=== PATIENT | female | born 1940 | race Caucasian/White ===

== ENCOUNTER 2019-05-07 14:45 | Inpatient (IN) | payer MEDICARE ==
[2019-05-08] MEDS ORDERED: traMADol HCl 50 MG TAB PO PRN (19:52)
[2019-05-08] MEDS ORDERED: MINERAL OIL PR PRN (19:52)
[2019-05-08] MEDS ORDERED: Bisacodyl 10 MG SUPP PR PRN (19:52)
[2019-05-08] MEDS ORDERED: Bisacodyl 5 MG TAB PO PRN (19:52)
[2019-05-08] MEDS: Apixaban 5 MG TAB PO SCH (21:46)
[2019-05-08] MEDS: Amiodarone 200 MG TAB PO SCH (21:46)
[2019-05-08] MEDS: Valsartan 80 MG TAB PO SCH (21:46)
[2019-05-08] MEDS: Famotidine 20 MG TAB PO SCH (21:46)
[2019-05-08] MEDS: Atorvastatin Calcium 40 MG TAB PO SCH (21:46)
[2019-05-08] MEDS: Nystatin Powder 15 GM BOT TOP SCH ×2 (21:47→21:58)
[2019-05-08] MEDS: Acetaminophen 325 MG TAB PO PRN (23:52)
[2019-05-09] MEDS: Levothyroxine Sodium 50 MCG TAB PO SCH (05:48)
[2019-05-09] MEDS: Acetaminophen 325 MG TAB PO PRN ×2 (05:48→11:28)
[2019-05-09] MEDS: Nystatin Powder 15 GM BOT TOP SCH ×2 (09:56→20:23)
[2019-05-09] MEDS: Aspirin 81 mg Enteric Coated Tablet PO SCH (09:57)
[2019-05-09] MEDS: Escitalopram Oxalate 20 mg Tablet PO SCH (09:59)
[2019-05-09] MEDS: Apixaban 5 MG TAB PO SCH ×2 (09:59→20:22)
[2019-05-09] MEDS: Furosemide 40 MG TAB PO SCH (09:59)
[2019-05-09] MEDS: Valsartan 80 MG TAB PO SCH ×2 (09:59→20:21)
[2019-05-09] MEDS: Cyanocobalamin (Vitamin B-12) 1,000 MCG TAB PO SCH (09:59)
[2019-05-09] MEDS: Amiodarone 200 MG TAB PO SCH ×2 (09:59→20:22)
[2019-05-09] MEDS: Polyethylene Glycol 3350 17 GM Packet PO SCH (10:00)
[2019-05-09] MEDS ORDERED: Dextrose 5% in Water 1,000 ML IV PRN (16:53)
[2019-05-09] MEDS ORDERED: Dextrose 50% Abboject 50 ML SYRINGE IVP PRN (16:53)
[2019-05-09] MEDS: HumaLOG 300 UNITS/3 ML VIAL SC PRN (17:57)
[2019-05-09] MEDS: Famotidine 20 MG TAB PO SCH (20:21)
[2019-05-09] MEDS: Atorvastatin Calcium 40 MG TAB PO SCH (20:22)
[2019-05-10] MEDS: Acetaminophen 325 MG TAB PO PRN ×2 (04:43→10:55)
[2019-05-10] MEDS: Levothyroxine Sodium 50 MCG TAB PO SCH (06:10)
[2019-05-10] MEDS: Furosemide 40 MG TAB PO SCH (07:51)
[2019-05-10] MEDS: Valsartan 80 MG TAB PO SCH ×2 (09:26→20:40)
[2019-05-10] MEDS: Escitalopram Oxalate 20 mg Tablet PO SCH (09:26)
[2019-05-10] MEDS: Amiodarone 200 MG TAB PO SCH ×2 (09:27→20:41)
[2019-05-10] MEDS: Aspirin 81 mg Enteric Coated Tablet PO SCH (09:27)
[2019-05-10] MEDS: Apixaban 5 MG TAB PO SCH ×2 (09:27→20:40)
[2019-05-10] MEDS: Cyanocobalamin (Vitamin B-12) 1,000 MCG TAB PO SCH (09:27)
[2019-05-10] MEDS: Polyethylene Glycol 3350 17 GM Packet PO SCH (09:28)
[2019-05-10] MEDS: Nystatin Powder 15 GM BOT TOP SCH ×2 (09:28→20:41)
[2019-05-10] MEDS: HumaLOG 300 UNITS/3 ML VIAL SC PRN ×3 (12:31→20:53)
[2019-05-10] MEDS: HYDROcodone/Acetaminophen 5/325 mg Tablet PO PRN ×2 (13:15→20:38)
[2019-05-10] MEDS: Guaifenesin DM 100-10/5 ML UDCUP PO PRN (13:17)
[2019-05-10] MEDS: Famotidine 20 MG TAB PO SCH (20:40)
[2019-05-10] MEDS: Atorvastatin Calcium 40 MG TAB PO SCH (20:40)
[2019-05-11] MEDS: Levothyroxine Sodium 50 MCG TAB PO SCH (06:15)
[2019-05-11] MEDS: HYDROcodone/Acetaminophen 5/325 mg Tablet PO PRN ×2 (06:16→20:38)
[2019-05-11] MEDS: Polyethylene Glycol 3350 17 GM Packet PO SCH (09:22)
[2019-05-11] MEDS: Aspirin 81 mg Enteric Coated Tablet PO SCH (09:22)
[2019-05-11] MEDS: Cyanocobalamin (Vitamin B-12) 1,000 MCG TAB PO SCH (09:22)
[2019-05-11] MEDS: Furosemide 40 MG TAB PO SCH (09:22)
[2019-05-11] MEDS: Apixaban 5 MG TAB PO SCH ×2 (09:22→20:40)
[2019-05-11] MEDS: Valsartan 80 MG TAB PO SCH ×2 (09:23→20:40)
[2019-05-11] MEDS: Escitalopram Oxalate 20 mg Tablet PO SCH (09:23)
[2019-05-11] MEDS: Amiodarone 200 MG TAB PO SCH ×2 (09:23→20:40)
[2019-05-11] MEDS: Nystatin Powder 15 GM BOT TOP SCH ×2 (09:23→20:42)
[2019-05-11] MEDS: HumaLOG 300 UNITS/3 ML VIAL SC PRN ×4 (09:25→20:39)
[2019-05-11] MEDS: Guaifenesin DM 100-10/5 ML UDCUP PO PRN (14:29)
[2019-05-11] MEDS: Famotidine 20 MG TAB PO SCH (20:40)
[2019-05-11] MEDS: Atorvastatin Calcium 40 MG TAB PO SCH (20:40)
[2019-05-12] MEDS: HYDROcodone/Acetaminophen 5/325 mg Tablet PO PRN ×2 (05:44→21:52)
[2019-05-12] MEDS: Levothyroxine Sodium 50 MCG TAB PO SCH (05:44)
[2019-05-12] MEDS: Valsartan 80 MG TAB PO SCH ×2 (08:35→20:30)
[2019-05-12] MEDS: Furosemide 40 MG TAB PO SCH (08:35)
[2019-05-12] MEDS: Aspirin 81 mg Enteric Coated Tablet PO SCH (08:36)
[2019-05-12] MEDS: Amiodarone 200 MG TAB PO SCH ×2 (08:36→20:31)
[2019-05-12] MEDS: Escitalopram Oxalate 20 mg Tablet PO SCH (08:36)
[2019-05-12] MEDS: Apixaban 5 MG TAB PO SCH ×2 (08:36→20:29)
[2019-05-12] MEDS: Nystatin Powder 15 GM BOT TOP SCH ×2 (08:37→20:31)
[2019-05-12] MEDS: Polyethylene Glycol 3350 17 GM Packet PO SCH (08:37)
[2019-05-12] MEDS: Cyanocobalamin (Vitamin B-12) 1,000 MCG TAB PO SCH (08:37)
[2019-05-12] MEDS: HumaLOG 300 UNITS/3 ML VIAL SC PRN ×3 (12:55→21:49)
[2019-05-12] MEDS: Famotidine 20 MG TAB PO SCH (20:30)
[2019-05-12] MEDS: Atorvastatin Calcium 40 MG TAB PO SCH (20:31)
[2019-05-13] MEDS: Levothyroxine Sodium 50 MCG TAB PO SCH (06:11)
[2019-05-13] MEDS: HYDROcodone/Acetaminophen 5/325 mg Tablet PO PRN ×2 (06:14→21:05)
[2019-05-13] MEDS: Polyethylene Glycol 3350 17 GM Packet PO SCH (08:48)
[2019-05-13] MEDS: Cyanocobalamin (Vitamin B-12) 1,000 MCG TAB PO SCH (08:48)
[2019-05-13] MEDS: Escitalopram Oxalate 20 mg Tablet PO SCH (08:49)
[2019-05-13] MEDS: Amiodarone 200 MG TAB PO SCH ×2 (08:49→21:05)
[2019-05-13] MEDS: Aspirin 81 mg Enteric Coated Tablet PO SCH (08:49)
[2019-05-13] MEDS: Apixaban 5 MG TAB PO SCH ×2 (08:49→21:04)
[2019-05-13] MEDS: Valsartan 80 MG TAB PO SCH ×2 (08:50→21:04)
[2019-05-13] MEDS: Furosemide 40 MG TAB PO SCH (08:50)
[2019-05-13] MEDS: Nystatin Powder 15 GM BOT TOP SCH ×2 (08:53→21:06)
[2019-05-13] MEDS: HumaLOG 300 UNITS/3 ML VIAL SC PRN ×4 (09:09→21:13)
[2019-05-13] MEDS: Atorvastatin Calcium 40 MG TAB PO SCH (21:04)
[2019-05-13] MEDS: Famotidine 20 MG TAB PO SCH (21:05)
[2019-05-14] MEDS: Levothyroxine Sodium 50 MCG TAB PO SCH (05:58)
[2019-05-14] MEDS: HYDROcodone/Acetaminophen 5/325 mg Tablet PO PRN ×2 (05:58→20:59)
[2019-05-14] MEDS: Furosemide 40 MG TAB PO SCH (08:08)
[2019-05-14] MEDS: HumaLOG 300 UNITS/3 ML VIAL SC PRN ×4 (08:09→21:13)
[2019-05-14] MEDS: Escitalopram Oxalate 20 mg Tablet PO SCH (08:52)
[2019-05-14] MEDS: Amiodarone 200 MG TAB PO SCH ×2 (08:52→21:00)
[2019-05-14] MEDS: Aspirin 81 mg Enteric Coated Tablet PO SCH (08:53)
[2019-05-14] MEDS: Apixaban 5 MG TAB PO SCH ×2 (08:53→21:00)
[2019-05-14] MEDS: Cyanocobalamin (Vitamin B-12) 1,000 MCG TAB PO SCH (08:53)
[2019-05-14] MEDS: Polyethylene Glycol 3350 17 GM Packet PO SCH (09:04)
[2019-05-14] MEDS: Nystatin Powder 15 GM BOT TOP SCH ×2 (09:04→23:19)
[2019-05-14] MEDS: Valsartan 80 MG TAB PO SCH ×2 (09:12→21:00)
[2019-05-14] MEDS: Guaifenesin DM 100-10/5 ML UDCUP PO PRN (09:15)
[2019-05-14] MEDS: Atorvastatin Calcium 40 MG TAB PO SCH (21:00)
[2019-05-14] MEDS: Famotidine 20 MG TAB PO SCH (21:00)
[2019-05-15] MEDS: HYDROcodone/Acetaminophen 5/325 mg Tablet PO PRN ×2 (05:18→18:28)
[2019-05-15] MEDS: Levothyroxine Sodium 50 MCG TAB PO SCH (05:18)
[2019-05-15] MEDS: Cyanocobalamin (Vitamin B-12) 1,000 MCG TAB PO SCH (08:42)
[2019-05-15] MEDS: Apixaban 5 MG TAB PO SCH ×2 (08:42→22:14)
[2019-05-15] MEDS: Escitalopram Oxalate 20 mg Tablet PO SCH (08:42)
[2019-05-15] MEDS: Amiodarone 200 MG TAB PO SCH ×2 (08:42→22:14)
[2019-05-15] MEDS: Aspirin 81 mg Enteric Coated Tablet PO SCH (08:42)
[2019-05-15] MEDS: Valsartan 80 MG TAB PO SCH ×2 (08:42→22:14)
[2019-05-15] MEDS: Furosemide 40 MG TAB PO SCH (08:42)
[2019-05-15] MEDS: Nystatin Powder 15 GM BOT TOP SCH ×2 (08:43→22:11)
[2019-05-15] MEDS: HumaLOG 300 UNITS/3 ML VIAL SC PRN ×3 (08:43→18:25)
[2019-05-15] MEDS: Polyethylene Glycol 3350 17 GM Packet PO SCH (08:45)
[2019-05-15 09:30] VITALS: BMI 36.8
[2019-05-15] MEDS ORDERED: FLU VACC TS2019-20(65YR UP)/PF 180 MCG/0.5 ML SYRINGE IM ONE (12:15)
[2019-05-15] MEDS: Insulin Glargine 34 UNITS in Pre-Filled Syringe 1 EACH SC SCH (22:11)
[2019-05-15] MEDS: Docusate 100 MG CAP PO SCH (22:13)
[2019-05-15] MEDS: Atorvastatin Calcium 40 MG TAB PO SCH (22:14)
[2019-05-15] MEDS: Famotidine 20 MG TAB PO SCH (22:14)
[2019-05-16] MEDS: HYDROcodone/Acetaminophen 5/325 mg Tablet PO PRN ×3 (00:20→22:20)
[2019-05-16] MEDS: Levothyroxine Sodium 50 MCG TAB PO SCH (05:24)
[2019-05-16] MEDS: Polyethylene Glycol 3350 17 GM Packet PO SCH (08:55)
[2019-05-16] MEDS: Apixaban 5 MG TAB PO SCH ×2 (08:55→21:24)
[2019-05-16] MEDS: Valsartan 80 MG TAB PO SCH ×2 (08:56→21:24)
[2019-05-16] MEDS: Aspirin 81 mg Enteric Coated Tablet PO SCH (08:56)
[2019-05-16] MEDS: Furosemide 40 MG TAB PO SCH (08:56)
[2019-05-16] MEDS: Docusate 100 MG CAP PO SCH ×2 (08:57→21:24)
[2019-05-16] MEDS: Amiodarone 200 MG TAB PO SCH ×2 (08:57→21:24)
[2019-05-16] MEDS: Cyanocobalamin (Vitamin B-12) 1,000 MCG TAB PO SCH (08:57)
[2019-05-16] MEDS: Escitalopram Oxalate 20 mg Tablet PO SCH (08:57)
[2019-05-16] MEDS: Nystatin Powder 15 GM BOT TOP SCH ×2 (08:57→21:24)
[2019-05-16] MEDS: HumaLOG 300 UNITS/3 ML VIAL SC PRN ×2 (13:12→18:10)
[2019-05-16] MEDS: Famotidine 20 MG TAB PO SCH (21:23)
[2019-05-16] MEDS: Atorvastatin Calcium 40 MG TAB PO SCH (21:24)
[2019-05-16] MEDS: Insulin Glargine 34 UNITS in Pre-Filled Syringe 1 EACH SC SCH (21:24)
[2019-05-16] MEDS ORDERED: hydrOXYzine 25 MG TAB ONE (23:43)
[2019-05-17] MEDS: Levothyroxine Sodium 50 MCG TAB PO SCH (05:18)
[2019-05-17 05:22] LABS: Anion Gap 14 mmol/L (10-20); BUN (Urea Nitrogen) 16 mg/dL (9.8-20.1); Calc. Creatinine Clearance 82 mL/min (70-130); Carbon Dioxide 26 mmol/L (23-31); Chloride 105 mmol/L (98-107); Estimated GFR-MDRD 69; Glucose 163 mg/dL (83-110); Potassium 3.8 mmol/L (3.5-5.1); Sodium 141 mmol/L (136-145)
[2019-05-17 05:25] LABS: #Basophils 0.1 thou/uL (0.0-0.2); #Eosinphils 1.3 thou/uL (0.0-0.7); #Lymphocytes 2.4 thou/uL (1.20-3.40); #Monocytes 1.1 thou/uL (0.11-0.59); #Neutrophils 6.3 thou/uL (1.40-6.50); %Basophils 1.2 % (0.0-1.0); %Eosinophils 11.7 % (0.0-10.0); %Lymphocytes 21.6 % (21.0-51.0); %Monocytes 9.4 % (0.0-10.0); %Neutrophils 56.1 % (42.0-75.0); Hemoglobin 9.1 g/dL (12.0-16.0); Mean Platelet Volume 6.4 fL (7.4-10.4); Platelet Count 473 thou/uL (130-400); RBC Distribution Width 16.7 % (11.5-14.5); Red Blood Cell (RBC) Count 2.74 mill/uL (4.20-5.40); White Blood Cell (WBC) Count 11.2 thou/uL (4.8-10.8)
[2019-05-17] MEDS: Docusate 100 MG CAP PO SCH ×2 (08:28→20:59)
[2019-05-17] MEDS: Aspirin 81 mg Enteric Coated Tablet PO SCH (08:28)
[2019-05-17] MEDS: Valsartan 80 MG TAB PO SCH ×2 (08:28→20:59)
[2019-05-17] MEDS: Escitalopram Oxalate 20 mg Tablet PO SCH (08:29)
[2019-05-17] MEDS: Apixaban 5 MG TAB PO SCH ×2 (08:29→20:59)
[2019-05-17] MEDS: Furosemide 40 MG TAB PO SCH (08:29)
[2019-05-17] MEDS: Nystatin Powder 15 GM BOT TOP SCH ×2 (08:29→21:07)
[2019-05-17] MEDS: Cyanocobalamin (Vitamin B-12) 1,000 MCG TAB PO SCH (08:29)
[2019-05-17] MEDS: Amiodarone 200 MG TAB PO SCH ×2 (08:29→20:59)
[2019-05-17] MEDS: Polyethylene Glycol 3350 17 GM Packet PO SCH (08:30)
[2019-05-17] MEDS: HYDROcodone/Acetaminophen 5/325 mg Tablet PO PRN ×2 (11:33→21:06)
[2019-05-17] MEDS: HumaLOG 300 UNITS/3 ML VIAL SC PRN ×2 (13:10→17:06)
[2019-05-17] MEDS: Insulin Glargine 34 UNITS in Pre-Filled Syringe 1 EACH SC SCH (20:59)
[2019-05-17] MEDS: Famotidine 20 MG TAB PO SCH (20:59)
[2019-05-17] MEDS: Atorvastatin Calcium 40 MG TAB PO SCH (20:59)
[2019-05-18] MEDS: Levothyroxine Sodium 50 MCG TAB PO SCH (05:20)
[2019-05-18] MEDS: HYDROcodone/Acetaminophen 5/325 mg Tablet PO PRN ×2 (05:20→22:54)
[2019-05-18] MEDS: Escitalopram Oxalate 20 mg Tablet PO SCH (09:44)
[2019-05-18] MEDS: Valsartan 80 MG TAB PO SCH ×2 (09:44→21:34)
[2019-05-18] MEDS: Apixaban 5 MG TAB PO SCH ×2 (09:44→21:35)
[2019-05-18] MEDS: Cyanocobalamin (Vitamin B-12) 1,000 MCG TAB PO SCH (09:44)
[2019-05-18] MEDS: Nystatin Powder 15 GM BOT TOP SCH ×2 (09:45→21:36)
[2019-05-18] MEDS: Furosemide 40 MG TAB PO SCH (09:45)
[2019-05-18] MEDS: Amiodarone 200 MG TAB PO SCH ×2 (09:45→21:34)
[2019-05-18] MEDS: Aspirin 81 mg Enteric Coated Tablet PO SCH (09:45)
[2019-05-18] MEDS: Docusate 100 MG CAP PO SCH ×2 (09:45→21:36)
[2019-05-18] MEDS: Polyethylene Glycol 3350 17 GM Packet PO SCH (09:46)
[2019-05-18] MEDS: Atorvastatin Calcium 40 MG TAB PO SCH (21:34)
[2019-05-18] MEDS: Famotidine 20 MG TAB PO SCH (21:34)
[2019-05-18] MEDS: Insulin Glargine 34 UNITS in Pre-Filled Syringe 1 EACH SC SCH (21:35)
[2019-05-19] MEDS: Levothyroxine Sodium 50 MCG TAB PO SCH (05:26)
[2019-05-19] MEDS: Polyethylene Glycol 3350 17 GM Packet PO SCH (09:22)
[2019-05-19] MEDS: Valsartan 80 MG TAB PO SCH ×2 (09:23→21:32)
[2019-05-19] MEDS: Aspirin 81 mg Enteric Coated Tablet PO SCH (09:23)
[2019-05-19] MEDS: Furosemide 40 MG TAB PO SCH (09:23)
[2019-05-19] MEDS: Cyanocobalamin (Vitamin B-12) 1,000 MCG TAB PO SCH (09:23)
[2019-05-19] MEDS: Amiodarone 200 MG TAB PO SCH ×2 (09:24→21:31)
[2019-05-19] MEDS: Escitalopram Oxalate 20 mg Tablet PO SCH (09:24)
[2019-05-19] MEDS: Docusate 100 MG CAP PO SCH ×2 (09:24→21:32)
[2019-05-19] MEDS: Apixaban 5 MG TAB PO SCH ×2 (09:30→21:34)
[2019-05-19] MEDS: Nystatin Powder 15 GM BOT TOP SCH ×2 (09:31→21:37)
[2019-05-19] MEDS: HumaLOG 300 UNITS/3 ML VIAL SC PRN ×2 (13:57→18:28)
[2019-05-19] MEDS: Acetaminophen 325 MG TAB PO PRN (21:31)
[2019-05-19] MEDS: Famotidine 20 MG TAB PO SCH (21:32)
[2019-05-19] MEDS: Insulin Glargine 34 UNITS in Pre-Filled Syringe 1 EACH SC SCH (21:32)
[2019-05-19] MEDS: Atorvastatin Calcium 40 MG TAB PO SCH (21:32)
[2019-05-20] MEDS: Levothyroxine Sodium 50 MCG TAB PO SCH (05:46)
[2019-05-20] MEDS: Polyethylene Glycol 3350 17 GM Packet PO SCH (08:20)
[2019-05-20] MEDS: Valsartan 80 MG TAB PO SCH ×2 (08:25→22:00)
[2019-05-20] MEDS: Docusate 100 MG CAP PO SCH ×2 (08:25→21:59)
[2019-05-20] MEDS: Escitalopram Oxalate 20 mg Tablet PO SCH (08:25)
[2019-05-20] MEDS: Furosemide 40 MG TAB PO SCH (08:25)
[2019-05-20] MEDS: Cyanocobalamin (Vitamin B-12) 1,000 MCG TAB PO SCH (08:26)
[2019-05-20] MEDS: Apixaban 5 MG TAB PO SCH ×2 (08:26→21:59)
[2019-05-20] MEDS: Aspirin 81 mg Enteric Coated Tablet PO SCH (08:26)
[2019-05-20] MEDS: Amiodarone 200 MG TAB PO SCH ×2 (08:26→21:59)
[2019-05-20] MEDS: Nystatin Powder 15 GM BOT TOP SCH ×2 (08:27→22:00)
[2019-05-20] MEDS: HYDROcodone/Acetaminophen 5/325 mg Tablet PO PRN (10:13)
[2019-05-20 12:07] LABS: Bilirubin Negative (Negative); Blood, Urine Trace (Negative); Clarity Cloudy (Clear); Glucose, Urine (Dipstick) Negative (Negative); Leukocyte Moderate (Negative); Nitrite Negative (Negative); Protein, Urine (Dipstick) Trace mg/dL (Neg-Trace)
[2019-05-20 12:17] LABS: RBC/HPF 0-3 HPF (0-3); Squamous Epithelial 0-3 HPF (0-3); WBC/HPF 21-50 HPF (0-3)
[2019-05-20 12:20] LABS: Bacteria/HPF 3+ HPF (None Seen); Broad Cast None Seen LPF (None Seen); Calcium Oxalate Crystals None Seen HPF (None Seen); Cellular Cast None Seen LPF (None Seen); Epithelial Cast None Seen LPF (None Seen); Fatty Cast None Seen LPF (None Seen); Mucous/LPF None Seen LPF (<2+); Other Casts None Seen LPF (None Seen); Oval Fat Bodies/HPF None Seen HPF (None Seen); Red Blood Cell Cast None Seen LPF (None Seen); Renal Epithelial None Seen HPF (None Seen); Sperm/HPF None Seen HPF (None Seen); Transitional Epithelial None Seen HPF (None Seen); Trichomonas/HPF None Seen HPF (None Seen); Triple Phosphate Crystal None Seen HPF (None Seen); Unclassified Crystals None Seen HPF (None Seen); Waxy Cast None Seen LPF (None Seen); White Blood Cell Cast None Seen LPF (None Seen); Yeast-Budding None Seen HPF (None Seen); Yeast-Hyphae None Seen HPF (None Seen)
[2019-05-20] MEDS: HumaLOG 300 UNITS/3 ML VIAL SC PRN (13:18)
[2019-05-20] MEDS: Famotidine 20 MG TAB PO SCH (21:59)
[2019-05-20] MEDS: Atorvastatin Calcium 40 MG TAB PO SCH (21:59)
[2019-05-20] MEDS: Sulfameth/Trimethoprim DS 800-160mg TAB PO SCH (21:59)
[2019-05-20] MEDS: Insulin Glargine 34 UNITS in Pre-Filled Syringe 1 EACH SC SCH (22:00)
[2019-05-21] MEDS: Levothyroxine Sodium 50 MCG TAB PO SCH (05:45)
[2019-05-21 06:50] VITALS: BP 166/77; TEMP 98.1
[2019-05-21] MEDS: Furosemide 40 MG TAB PO SCH (09:03)
[2019-05-21] MEDS: Cyanocobalamin (Vitamin B-12) 1,000 MCG TAB PO SCH (09:03)
[2019-05-21] MEDS: Escitalopram Oxalate 20 mg Tablet PO SCH (09:03)
[2019-05-21] MEDS: Sulfameth/Trimethoprim DS 800-160mg TAB PO SCH (09:03)
[2019-05-21] MEDS: Docusate 100 MG CAP PO SCH (09:04)
[2019-05-21] MEDS: Amiodarone 200 MG TAB PO SCH (09:04)
[2019-05-21] MEDS: Polyethylene Glycol 3350 17 GM Packet PO SCH (09:04)
[2019-05-21] MEDS: Apixaban 5 MG TAB PO SCH (09:04)
[2019-05-21] MEDS: Valsartan 80 MG TAB PO SCH (09:04)
[2019-05-21] MEDS: Aspirin 81 mg Enteric Coated Tablet PO SCH (09:04)
[2019-05-21] MEDS: Nystatin Powder 15 GM BOT TOP SCH (09:05)
[2019-05-21] MEDS ORDERED: Lantus 1000 UNITS/10 ML VIAL SC SCH (21:00)
== END 2019-05-21 13:01 | disposition home or self-care (01) | DRG 949 ==
LOC: BURMED 05-08 15:55
PROVIDERS: ADMIT Family Medicine; ATTEND Family Medicine
DX: Z48.812 Encounter for surgical aftercare following surgery on the circulatory system (principal); I48.92 Unspecified atrial flutter; E11.9 Type 2 diabetes mellitus without complications; I25.10 Atherosclerotic heart disease of native coronary artery without angina pectoris; M81.0 Age-related osteoporosis without current pathological fracture; Z95.5 Presence of coronary angioplasty implant and graft; Z88.8 Allergy status to other drugs, medicaments and biological substances; Z79.899 Other long term (current) drug therapy; Z90.49 Acquired absence of other specified parts of digestive tract; Z90.710 Acquired absence of both cervix and uterus; F32.9 Major depressive disorder, single episode, unspecified; Z79.4 Long term (current) use of insulin; E53.8 Deficiency of other specified B group vitamins; Z95.1 Presence of aortocoronary bypass graft
CPT/HCPCS: 36415; 36416; 80048; 81001; 85025; J1815

== ENCOUNTER 2025-05-27 08:51 | Inpatient (IN) | payer MEDICARE ==
[2025-05-27 17:35] VITALS: BMI 26.9
[2025-05-27] MEDS ORDERED: Glucagon 1 MG/ML KIT IM PRN (17:45)
[2025-05-27] MEDS ORDERED: Dextrose 50% Abboject 50 ML SYRINGE SLOW IVP PRN (17:45)
[2025-05-27] MEDS ORDERED: Famotidine 20 MG TAB PO SCH (21:00)
[2025-05-27] MEDS ORDERED: Insulin Glargine 10 UNITS in PREFILLED SYR 1 EACH SC SCH (21:00)
[2025-05-27] MEDS: Enoxaparin 40 MG (0.4 mL) SYRINGE SC SCH (21:41)
[2025-05-27] MEDS: Ezetimibe 10 MG TAB PO SCH (21:41)
[2025-05-27] MEDS: Sulfameth/Trimethoprim DS 800-160mg TAB PO SCH (21:41)
[2025-05-27] MEDS: Magnesium Oxide 400 MG TAB PO SCH (21:41)
[2025-05-27] MEDS: Lantus 1000 UNITS/10 ML VIAL SC SCH (21:42)
[2025-05-27] MEDS: Acetaminophen 325 MG TAB PO SCH (21:45)
[2025-05-28] MEDS: Spironolactone 25 MG TAB PO SCH (09:50)
[2025-05-28] MEDS: Pantoprazole 40 MG DR.TAB PO SCH (09:50)
[2025-05-28] MEDS: Furosemide 40 MG TAB PO SCH (09:50)
[2025-05-28] MEDS: Aspirin 81 mg Enteric Coated Tablet PO SCH (09:50)
[2025-05-28] MEDS: BuPROPion XL 150 MG ER.TAB PO SCH (09:50)
[2025-05-28] MEDS: Metoprolol Succinate XL 25 MG ER.TAB PO SCH (09:51)
[2025-05-28 13:50] VITALS: BMI 26.9
[2025-05-29] MEDS: Floranex 1 GM Packet PO SCH (08:46)
[2025-05-29] MEDS: Acetaminophen 500 MG TAB PO SCH (17:21)
[2025-05-29] MEDS: Gabapentin 300 MG CAP PO SCH (21:13)
[2025-05-29] MEDS: Transdermal Patch Removal TOP SCH (21:15)
[2025-05-30] MEDS: Senokot S 8.6-50 MG TAB PO PRN (12:21)
[2025-05-30] MEDS: Lantus 1000 UNITS/10 ML VIAL SC SCH (13:53)
[2025-05-31] MEDS: Lantus 1000 UNITS/10 ML VIAL SC SCH (08:48)
[2025-06-03] MEDS: Diclofenac 1% 100 GM Topical GEL TP SCH (17:48)
[2025-06-04] MEDS ORDERED: Ibuprofen 200 MG TAB PO SCH (06:00)
[2025-06-04] MEDS: Ibuprofen 200 MG TAB PO SCH (09:09)
[2025-06-13 05:54] VITALS: BP 129/76; TEMP 97.8
== END 2025-06-13 12:40 | DRG 945 ==
LOC: BURMED 16:40
PROVIDERS: ADMIT Family Medicine; ATTEND Family Medicine
PROC: F07Z9ZZ Gait Training/Functional Ambulation Treatment (ICD-10-PCS; principal; 2025-05-27)
DX: R53.1 Weakness (principal); N39.0 Urinary tract infection, site not specified; E11.65 Type 2 diabetes mellitus with hyperglycemia; F41.9 Anxiety disorder, unspecified; F32.A Depression, unspecified; E78.5 Hyperlipidemia, unspecified; I25.10 Atherosclerotic heart disease of native coronary artery without angina pectoris; E03.9 Hypothyroidism, unspecified; Z60.2 Problems related to living alone; I48.91 Unspecified atrial fibrillation; Z98.890 Other specified postprocedural states; I11.0 Hypertensive heart disease with heart failure; I50.9 Heart failure, unspecified; Z95.0 Presence of cardiac pacemaker; Z95.1 Presence of aortocoronary bypass graft; Z79.82 Long term (current) use of aspirin; Z79.899 Other long term (current) drug therapy; Z79.890 Hormone replacement therapy; Z79.4 Long term (current) use of insulin
CPT/HCPCS: 36416; J1650; J1815; Q0162